=== PATIENT | female | born 1945 | race Caucasian/White ===

== ENCOUNTER → 2019-01-24 | Outpatient (CLI) | payer MEDICARE, OTHER ==
--- NOTE | 2019-01-24 09:47 | RAD ---
EXAM DESCRIPTION: Hand,Right 3 Views CLINICAL HISTORY: M79.641, pain. COMPARISON: None Available. TECHNIQUE: AP, LATERAL, AND OBLIQUE FINDINGS: Three-view right hand shows no fracture or dislocation. Moderate scattered osteoarthritic changes are present with joint space narrowing, subchondral sclerosis and marginal osteophyte formation involving the interphalangeal, radiocarpal and to a lesser extent MCP joints. There is no radiopaque foreign body. Bone mineralization is slightly decreased. IMPRESSION: 1. No acute osseous abnormality. 2. Moderate scatter osteoarthrosis. Electronically signed by: Gregorio Carlson DO 01/24/2019 9:45 AM CDT
== END ==
LOC: RAD 08:50
PROVIDERS: ATTEND Orthopaedic Surgery
DX: M19.041 Primary osteoarthritis, right hand (principal)

== ENCOUNTER → 2019-02-08 | Outpatient (CLI) | payer MEDICARE, OTHER | LOC: LAB.O 08:12 | PROVIDERS: ATTEND Orthopaedic Surgery | DX: Z01.818 Encounter for other preprocedural examination (principal) ==

== ENCOUNTER 2019-02-19 05:36 | Day surgery (SDC) | payer MEDICARE, OTHER ==
--- NOTE | 2019-02-15 11:10 | HP ---
CHIEF COMPLAINT: Right hand pain and locking. HISTORY OF PRESENT ILLNESS: Ms. Anand is a 73-year-old female that has been having issues for several years. She has had difficulty with opening and closing of her hand. She has difficulty with straightening. She has had no radiation of pain, no neurologic symptoms and has been atraumatic. She has some stiffness in the hand involving the 3 digits. Because of her ongoing symptoms that have been present for years, she has requested operative intervention. After discussing the risks, benefits and alternatives to trigger finger release, she has given informed consent for trigger finger release of the second, third and fourth digits. PAST SURGICAL HISTORY: None. MEDICATIONS: 1. Atorvastatin. 2. Coreg. 3. Losartan. 4. Plavix. PAIN CONTRACT: None. ALLERGIES: NO KNOWN DRUG ALLERGIES. CODE STATUS: Full code. IMMUNIZATIONS: Up to date. SOCIAL HISTORY: The patient does not drink, smoke or use any illicit drugs. FAMILY HISTORY: None pertinent to today's complaint. REVIEW OF SYSTEMS: Negative except as indicated in the History of Present Illness. PHYSICAL EXAMINATION: VITAL SIGNS: Blood pressure 124/69. Pulse 68. Height 5'6". Weight 160 pounds. MENTAL STATUS: The patient is awake, alert, and is able to give a good history and participate in the physical. The patient is oriented to person, place and time. SKIN: Normal tone and turgor. MUSCULOSKELETAL: She has tenderness over the A1 margarito at the second, third and fourth digits. She has palpable clicking at those digits. She has stiffness in the digits, but she is able to fully flex them passively. There is no overall malalignment. There is no significant thenar or hypothenar atrophy. ASSESSMENT: 1. Trigger finger times 3. PLAN: The plan at this point is for trigger finger release. We have discussed the risks, benefits, and alternatives to that and the patient has given informed consent. #[id number] [facility]
[2019-02-19] MEDS ORDERED: LIDOCAINE 1% 10 ML VIAL INJ ONE ×2 (07:00→09:40)
[2019-02-19] MEDS ORDERED: PROPOFOL 200 MG/20 ML VIAL IV ONE (07:00)
[2019-02-19] MEDS ORDERED: BUPIVACAINE 0.25% INJ 30 ML VIAL INJ ONE (09:39)
[2019-02-19] MEDS ORDERED: SODIUM CHL 0.9% 100ML MINI-BAG 100 ML IVPB ONE (10:22)
[2019-02-19] MEDS ORDERED: LACTATED RINGERS 1,000 ML ONE (10:22)
[2019-02-19] MEDS ORDERED: ceFAZolin SODIUM 1 GM VIAL ONE (10:22)
[2019-02-19] MEDS ORDERED: MIDAZOLAM INJ 2 MG/2 ML VIAL ONE (11:48)
[2019-02-19] MEDS ORDERED: fentaNYL CITRATE INJ 50 MCG/ML AMP ONE (11:48)
[2019-02-19] MEDS: ceFAZolin SODIUM 1 GM VIAL ONE ×2 (12:19→12:37)
[2019-02-19] MEDS: VANCOMYCIN HCL INJ 1,000 MG VIAL IVPB ONE ×2 (12:20→12:37)
[2019-02-19 13:41] VITALS: BP 154/92; TEMP 96.6; O2SAT 96
--- NOTE | 2019-02-21 08:12 | OP ---
DATE OF PROCEDURE: 02/19/19 PREOPERATIVE DIAGNOSIS: 1. Trigger finger of the right second, third and fourth digits. POSTOPERATIVE DIAGNOSIS: 1. Trigger finger of the right second, third and fourth digits. PROCEDURE: 1. A1 margarito release at the second digit. 2. A1 margarito release at the third digit. 3. A1 margarito release at the fourth digit. SURGEON: Jasbir Koo MD. BLENDER MACHINE OPERATOR: Bernard Garrett CST, SA-C. ANESTHESIA: Local with sedation. COMPLICATIONS: None. FINDINGS: Triggering at the A1 margarito of the second, third and fourth digits. INDICATION: Ms. Anand has a history of triggering, pain and stiffness at the A1 margarito. She has had this going on for several years and has finally requested operative intervention. After discussing the risks, benefits and alternatives to operative therapy, the patient has given informed for that. PROCEDURE: The patient was brought to the Operating Room and placed in the supine position. Sedation was administered and local anesthetic was injected into the operative area of all three of the digits. Attention was first focused on the second digit and a transverse incision was made directly overlying the A1 margarito. Dissection was carried down to the A1 margarito and the A1 margarito was sharply transected. A [place] elevator was passed both proximally and distally to ensure complete release. Attention was then focused on the third digit where the procedure was repeated in its entirety with identification of the A1 margarito, transection of the A1 margarito and confirmation of complete release. Attention was then focused on the fourth digit where the procedure was performed again. All wounds were cleaned and closed with Nylon sutures. Sterile dressings were placed and the patient was taken to the Day Surgery Unit. POSTOPERATIVE PLAN: The patient has been encouraged to do range of motion of the digits and will followup with us in two days. #[id number] [facility]
== END 2019-02-19 13:40 | disposition home or self-care (01) ==
LOC: AMB 05:36
PROVIDERS: ATTEND Orthopaedic Surgery
DX: M65.321 Trigger finger, right index finger (principal); M65.331 Trigger finger, right middle finger; M65.341 Trigger finger, right ring finger; Z79.02 Long term (current) use of antithrombotics/antiplatelets; Z79.899 Other long term (current) drug therapy
CPT/HCPCS: 01810; 26055; 80307; J0690; J2250; J3010; J3370; J7050; J7120